=== PATIENT | female | born 2000 | race Asian ===

== ENCOUNTER 2023-11-25 04:15 | Emergency (ER) | payer OTHER, MEDICAID ==
[~2023-11-25] VITALS: Ht 154.9 cm; Wt 48.6 kg
[2023-11-25 04:17] VITALS: BP 112/85; PULSE 74; RESP 16; TEMP 97.7; O2SAT 98
[2023-11-25] MEDS: LEVONORGESTREL 1.5MG tablet 1.5 MG TABLET PO ONE (06:49)
[2023-11-25] MEDS: CefTRIAXone 500MG IM Kit w/LIDOcaine (for pt below or = to 150kg) IM ONE (06:49)
[2023-11-25] MEDS: azithromycin 250mg tablet PO ONE (06:49)
[2023-11-25] MEDS: TINIDAZOLE 500 MG TABLET PO ONE (06:50)
[2023-11-25 06:59] LABS: BILIRUBIN,URINE NEGATIVE (Neg); CLARITY,URINE SLIGHTLY CLOUDY (Clear); COLOR,URINE YELLOW (Yellow); GLUCOSE, URINE NEGATIVE (Neg); KETONES,URINE NEGATIVE (Neg); LEUKOCYTE ESTERASE ,URINE NEGATIVE (Neg); NITRITES, URINE POSITIVE (Neg); OCCULT BLOOD,URINE MODERATE (Neg); PROTEIN,URINE NEGATIVE (Neg); UROBILINOGEN,URINE 0.2 E.U/dL (0.2-1.0)
[2023-11-25 07:10] LABS: UA COLLECTION TYPE VOIDED
[2023-11-25 07:16] LABS: WBC,URINE 50-100 /HPF (0-4)
[2023-11-25 07:17] LABS: BACTERIA,URINE 4+ /HPF (Neg); MUCUS STRANDS NONE SEEN /LPF (Neg); SQUAMOUS EPITHELIAL CELL,UR MANY /LPF (FEW)
[2023-11-25] MEDS ORDERED: CEPH-585 PO (07:50)
== END 2023-11-25 10:04 | disposition home or self-care (01) ==
LOC: ER 04:16 → EEVIPCON 04:16 → ER 10:04
DX: T76.21XA Adult sexual abuse, suspected, initial encounter (principal); N39.0 Urinary tract infection, site not specified; Z79.2 Long term (current) use of antibiotics
CPT/HCPCS: 81001; 96372; 99284; J0696